=== PATIENT | male | born 1940 | race Caucasian/White ===

== ENCOUNTER → 2019-04-24 14:18 | Outpatient (CLI) | payer MEDICARE, SELFPAY ==
--- NOTE | 2019-04-24 14:27 | RAD_ITS ---
STUDY: X-RAY - PELVIS REASON FOR EXAM: Male, 78 years old. An inflammatory polyarthropathy. TECHNIQUE: One view of the pelvis was obtained. COMPARISON: None. FINDINGS: There is a non-specific bowel gas pattern. There are a few calcified phleboliths in the pelvic soft tissues. The patient has undergone prior L4 laminectomies and posterior lower lumbar fusion with metal hardware. Sutures in a C shaped orientation overlaps the right hip and superior pubic ramus, presumably related to prior inguinal hernia repair. Normal bilateral iliac wings, sacroiliac joints and visualized sacrum. Normal visualized bilateral superior and inferior pubic rami. Normal pubic symphysis. Normal ischial tuberosities. There is no demonstrated osseous destructive lesion or acute fracture. Normal visualized right femoral head. Normal right acetabulum. Normal right hip joint. Normal visualized left femoral head. Normal left acetabulum. Normal left hip joint space. Mild amorphous degenerative calcification noted along the superolateral margin of the hip joint RAD/Pelvis 1 or 2 Views IMPRESSION: 1. No acute osseous abnormality of the pelvis. 2. Prior L4 laminectomies and posterior lower lumbar fusion with metal hardware. 3. Prior right inguinal herniorrhaphy. Electronically Signed: Napoleon Bragg MD at 15:15 EST , Service support ,
[2019-04-24 15:11] LABS: Absolute Lymphocyte Count 1.66 X10^3/uL (0.83-4.51); Absolute Neutrophil Count 4.6 X10^3/uL (2.0-7.7); Basophil# 0.06 X10^3/uL; Basophil% 0.8 % (0-1); Eosinophil# 0.12 X10^3/uL; Eosinophils% 1.6 % (0-5); Hematocrit 51.3 % (40-54); Hemoglobin 16.8 g/dL (13.0-16.5); Lymphocyte # 1.66 X10^3/ul (4.0); Lymphocyte % 21.9 % (19-41); Mean Corp Hgb Conc 32.7 g/dL (32-36); Mean Corpuscular Hgb 31.4 pg (27.0-32.0); Mean Corpuscular Volume 95.9 fL (80-94); Mean Platelet Vol. 10.9 fl (6.2-12.0); Monocyte% 14.5 % (0-10); NRBC Flagged by Analyzer 0 % (0-5); Neutrophil # 4.56 X10^3/uL (2.7-7.7); Neutrophil % 60.3 % (47-70); Platelet Count 194 K/mm3 (150-450); RBC Distribution Width CV 13.2 % (11.6-14.6); RBC Distribution Width SD 46.7 fl (35.1-43.9); Red Blood Count 5.35 M/mm3 (4.6-6.2); White Blood Count 7.6 K/mm3 (4.4-11.0)
[2019-04-24 15:35] LABS: ALB/GLOB Ratio 0.9 RATIO (0.9-2.4); AST(SGOT) 24 U/L (15-37); Alanine Aminotransfer ALT/SGPT 25 U/L (16-61); Albumin, Serum 3.4 g/dL (3.2-5.0); Alkaline Phosphatase 63 U/L (45-117); Anion Gap 7 (5-15); BUN 19 mg/dL (7-18); BUN/Creat Ratio 16.1 RATIO (10-20); CRP 3.36 mg/L (0.0-3.0); Calcium,Total 9.1 mg/dL (8.5-10.1); Chloride 106 mmol/L (98-107); Creatinine, Serum 1.18 mg/dL (0.70-1.30); EST Glomerular Filtration Rate 63 mL/min (>60); Est Glom Filt Rate - Afr Amer 77 mL/min (>60); Globulin 3.6 g/dL (2.2-4.2); Glucose 82 mg/dL (74-106); Potassium 4.2 mmol/L (3.5-5.1); Rheumatoid Factor < 10.0 IU/mL (<15); Sodium Level 143 mmol/L (136-145)
[2019-04-24 15:44] LABS: Erythrocyte Sedimentation Rate 9 mm/hr (0-20)
[2019-04-25 09:28] LABS: Hepatitis B Surface Antibody Non-Reactive; Hepatitis B Surface Antigen Non-Reactive (Nonreactive); Hepatitis C Antibody Non-Reactive (Nonreactive)
[2019-04-27 16:19] LABS: CCP IgG Antibodies 8 units (0-19); Hepatitis B Core AB IgM Negative (Negative)
[2019-04-27 16:29] LABS: ANTINUCLEAR ANTIBODIES DIRECT Negative (Negative)
== END ==
PROVIDERS: Family Provider Family Medicine; PCP Family Medicine; Referring Provider Internal Medicine Rheumatology; Visit Provider Internal Medicine Rheumatology
DX: M06.4 Inflammatory polyarthropathy (principal); M47.892 Other spondylosis, cervical region; I10 Essential (primary) hypertension; K21.9 Gastro-esophageal reflux disease without esophagitis; Q66.71 Congenital pes cavus, right foot
CPT/HCPCS: 36415; 72170; 80053; 85025; 85652; 86038; 86140; 86200; 86431; 86705; 86706; 86803; 87340

== ENCOUNTER → 2019-07-11 09:04 | Outpatient (CLI) | payer MEDICARE, SELFPAY ==
[2019-07-11 10:02] LABS: Absolute Lymphocyte Count 2.18 X10^3/uL (0.83-4.51); Absolute Neutrophil Count 4.1 X10^3/uL (2.0-7.7); Basophil# 0.02 X10^3/uL; Basophil% 0.3 % (0-1); Eosinophil# 0.12 X10^3/uL; Eosinophils% 1.7 % (0-5); Hemoglobin 16.3 g/dL (13.0-16.5); Lymphocyte # 2.18 X10^3/ul (4.0); Lymphocyte % 30.8 % (19-41); Mean Corp Hgb Conc 32.6 g/dL (32-36); Mean Corpuscular Hgb 31.3 pg (27.0-32.0); Mean Corpuscular Volume 96.2 fL (80-94); Mean Platelet Vol. 10.4 fl (6.2-12.0); Monocyte% 8.5 % (0-10); NRBC Flagged by Analyzer 0 % (0-5); Neutrophil # 4.13 X10^3/uL (2.7-7.7); Neutrophil % 58.3 % (47-70); Platelet Count 201 K/mm3 (150-450); RBC Distribution Width CV 13.8 % (11.6-14.6); RBC Distribution Width SD 48.1 fl (35.1-43.9); White Blood Count 7.1 K/mm3 (4.4-11.0)
[2019-07-11 10:49] LABS: ALB/GLOB Ratio 0.9 RATIO (0.9-2.4); AST(SGOT) 25 U/L (15-37); Alanine Aminotransfer ALT/SGPT 29 U/L (16-61); Albumin, Serum 3.5 g/dL (3.2-5.0); Alkaline Phosphatase 65 U/L (45-117); Anion Gap 3 (5-15); BUN 19 mg/dL (7-18); BUN/Creat Ratio 15.8 RATIO (10-20); Calcium,Total 9.3 mg/dL (8.5-10.1); Chloride 108 mmol/L (98-107); EST Glomerular Filtration Rate 62 mL/min (>60); Est Glom Filt Rate - Afr Amer 75 mL/min (>60); Globulin 3.8 g/dL (2.2-4.2); Glucose 84 mg/dL (74-106); Potassium 4.3 mmol/L (3.5-5.1); Protein, Total 7.3 g/dL (6.4-8.2); Sodium Level 140 mmol/L (136-145)
== END ==
PROVIDERS: PCP Family Medicine; Referring Provider Internal Medicine Rheumatology; Visit Provider Internal Medicine Rheumatology
DX: M06.4 Inflammatory polyarthropathy (principal); M47.892 Other spondylosis, cervical region; Q66.71 Congenital pes cavus, right foot; Z79.899 Other long term (current) drug therapy
CPT/HCPCS: 36415; 80053; 85025